=== PATIENT | male | born 1990 | race African-American/Black ===

== ENCOUNTER 2018-09-26 07:52 | Emergency (ER) | payer OTHER ==
[~2018-09-26] VITALS: Ht 180.3 cm; Wt 101.2 kg
[~2018-09-26 07:52] MED LIST: NOHOMEMEDICATIONS
[2018-09-26] MEDS ORDERED: NEURONTIN 300300 M1 PO (08:24)
[2018-09-26 08:25] VITALS: BP 123/68
== END 2018-09-26 08:58 | disposition home or self-care (01) ==
LOC: ER 07:52
DX: G57.92 Unspecified mononeuropathy of left lower limb (principal)